=== PATIENT | male | born 1990 | race Hispanic/Latino ===

== ENCOUNTER 2017-08-21 12:43 | Emergency (ER) | payer SELFPAY ==
[2017-08-21] MEDS ORDERED: FENTANYL CITR 100 MCG/2 ML ONE (13:12)
[2017-08-21 13:44] LABS: Bicarbonate 26 mEq/L (21-31); Glucose Level 99 mg/dL (65-120); Potassium 3.4 mEq/L (3.6-5.0); Sodium Level 136 mEq/L (135-145)
[2017-08-21 13:48] LABS: Absolute Lymphocytes (CBC) 1.4 K/uL (0.7-4.9); Absolute Monocytes 0.6 K/uL (0.1-1.3); Absolute Neutrophil 3.4 K/uL (1.8-8.0); BUN Blood Urea Nitrogen 13 mg/dL (6-20); Basophils % 0.6 % (0-1.3); Creatine Phosphokinase 70 IU/L (22-269); Eosinophils % 2.1 % (0-4.4); Hematocrit 43.1 % (39.6-49.0); Lymphocytes % 25.3 % (15.3-44.8); MCH 30.1 pg (27.0-35.0); MCV 90.3 fL (80-100); MPV 10.5 fL (7.6-11.3); Monocytes % 11.7 % (3.3-12.3); RBC Red Blood Cell Count 4.78 M/uL (4.33-5.43)
[2017-08-21 13:55] LABS: CKMB Creatine Kinase MB 0.8 ng/ml (0.3-4.0)
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
== END 2017-08-21 15:09 | disposition home or self-care (01) ==
LOC: ER 12:43
DX: S20.212A Contusion of left front wall of thorax, initial encounter (principal); V59.49XA Driver of pick-up truck or van injured in collision with other motor vehicles in traffic accident, initial encounter
CPT/HCPCS: 36415; 70450; 71260; 72125; 74177; 80048; 82550; 82553; 84484; 85025; 86850; 86900; 86901; 96374; 99285; J3010; Q9967

== ENCOUNTER 2017-08-27 13:54 | Emergency (ER) | payer SELFPAY ==
[2017-08-27] MEDS ORDERED: CODEINE 30MG/APAP 300MG TAB ONE (19:53)
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
== END 2017-08-27 20:14 | disposition home or self-care (01) ==
LOC: ER 13:54
DX: M62.830 Muscle spasm of back (principal)
CPT/HCPCS: 99283

== ENCOUNTER 2022-02-18 02:08 | Emergency (ER) | payer SELFPAY ==
[2022-02-18] MEDS ORDERED: METHYLPREDNISOLONE 125 MG INJ ONE (02:57)
[2022-02-18] MEDS ORDERED: IPRATROPIUM BROM 0.5MG/2.5ML ONE (02:58)
[2022-02-18] MEDS ORDERED: ALBUTEROL 2.5 MG/3 ML NEB SOL ONE (02:58)
[2022-02-18] MEDS ORDERED: KETOROLAC 30 MG/ML INJ ONE (02:58)
[2022-02-18 04:10] LABS: SARS-COV-2 RT PCR NEGATIVE (NEGATIVE)
--- NOTE | 2022-02-18 04:21 | ER ---
Nurse's Notes [facility] Name: Chandler Eng Age: 32 yrs Sex: Male : 1990 Arrival Date: 02/18/2022 Time: 02:09 Bed 3 Private MD: Diagnosis: Influenza due to identified novel influenza A virus Presentation: 02/18 02:21 Chief complaint: Patient states: Gifty had a sore throat since and i have a kd3 history of asthma. I woke up today and it is very hard to breath. it hurts a lot to breath and swallow. Coronavirus screen: Vaccine status: Patient reports being unvaccinated. Ebola Screen: No symptoms or risks identified at this time. Initial Sepsis Screen: Does the patient meet any 2 criteria? No. Patient's initial sepsis screen is negative. Does the patient have a suspected source of infection? No. Patient's initial sepsis screen is negative. Risk Assessment: Do you want to hurt yourself or someone else? Patient reports no desire to harm self or others. Onset of symptoms was February 18, 2022. 02:21 Method Of Arrival: Wheelchair kd3 02:21 Acuity: KAYLA 3 kd3 Triage Assessment: 02:23 General: Appears uncomfortable, Behavior is cooperative, anxious. Pain: Complains of kd3 pain in neck. Neuro: Level of Consciousness is awake, alert, obeys commands, Oriented to person, place, time, situation. Cardiovascular: Patient's skin is warm and dry. Respiratory: Reports shortness of breath Onset: The symptoms/episode began/occurred today, the patient has moderate shortness of breath. Historical: - PMHx: 02:23 2nd degree heart block; Asthma; irregular heart beat; kd3 - Immunization history:: Adult Immunizations up to date. - Social history:: Smoking status: unknown. - Family history:: not pertinent. Screenin:24 Abuse screen: Denies threats or abuse. Denies injuries from another. Nutritional kd3 screening: No deficits noted. Tuberculosis screening: No symptoms or risk factors identified. Fall Risk None identified. Assessment: 02:24 Cardiovascular:. Respiratory: Airway is patent Respiratory effort is shallow, Breath kd3 sounds with wheezes bilaterally. 02:30 General: Appears comfortable, well groomed, well developed, Behavior is cooperative, pf1 appropriate for age, anxious. 02:30 Pain: Complains of pain in chest Also complains of Patient C/O sore throat with pf1 bilateral chest wall burning sensation. Neuro: No deficits noted. Cardiovascular: Chest pain quality is burning. Respiratory: Airway is patent Respiratory effort is even, unlabored, Breath sounds with wheezes bilaterally. Onset: The symptoms/episode began/occurred today. 03:05 Cardiovascular: Rhythm is sinus rhythm. pf1 Vital Signs: 02:21 BP 143 / 94; Pulse 107; Resp 24; Temp 97.9; Pulse Ox 97% on R/A; Weight 71.67 kg; kd3 Height 5 ft. 11 in. (180.34 cm); Pain 6/10; 03:21 BP 143 / 96; Pulse 82; Resp 20; Pulse Ox 100% ; pf1 04:28 BP 146 / 86; Pulse 100; Resp 20; Temp 99.6; Pulse Ox 100% ; Pain 8/10; pf1 02:21 Body Mass Index 22.04 (71.67 kg, 180.34 cm) kd3 ED Course: 02:09 Patient arrived in ED. ja2 02:15 Oren Landry MD is Attending Physician. rt 02:23 Triage completed. kd3 02:23 Arm band placed on right wrist. kd3 02:24 Patient has correct armband on for positive identification. kd3 02:30 Inserted saline lock: 20 gauge in left antecubital area, using aseptic technique. pf1 02:30 No provider procedures requiring assistance completed. pf1 02:55 Lucila rodriguez, CHITO is Primary Nurse. pf1 04:31 IV discontinued, intact, bleeding controlled, No redness/swelling at site. Pressure pf1 dressing applied. Administered Medications: 03:05 Drug: Ketorolac 30 mg Route: IVP; Site: left antecubital; kl 04:15 Follow up: Response: No adverse reaction; Marked relief of symptoms kl 04:31 Follow up: Response: No adverse reaction; Pain is decreased pf1 03:09 Drug: DuoNeb (albuterol 2.5 mg, ipratropium 0.5 mg) (3:1) (2.5 mg - 0.5 mg) 3 ml Route: kl Nebulizer; 04:15 Follow up: Response: No adverse reaction; Marked relief of symptoms kl 04:28 Follow up: BP 146 / 86; Pulse 100 bpm; Resp 20 bpm; Temp 99.6; Pulse Ox 100% ; Pain pf1 8 Adult 04:30 Follow up: Response: No adverse reaction; Wheezing diminished pf1 03:10 Drug: SOLU-Medrol (methylPrednisoLONE) 125 mg Route: IVP; Site: left antecubital; kl 04:31 Follow up: Response: No adverse reaction; Marked relief of symptoms pf1 Medication: 02:30 VIS not applicable for this client. pf1 Outcome: 04:21 Discharge ordered by MD. rt 04:42 Discharged to home ambulatory. pf1 04:42 Condition: improved 04:42 Discharge instructions given to patient, Instructed on discharge instructions, follow up and referral plans. Demonstrated understanding of instructions, follow-up care, medications, Prescriptions given X 1. 04:45 Patient left the ED. pf1 Signatures: Vivienne Oden RN RN Shivani You Kyli, RN RN kd3 Oren Landry MD MD rt finley, Pamala, RN RN pf1 Corrections: (The following items were deleted from the chart) 03:21 03:21 Inserted saline lock: 20 gauge in left antecubital area, using aseptic technique. pf1 pf1
--- NOTE | 2022-02-18 04:21 | EDPHYS ---
Physician Documentation [facility] Name: Chandler Eng Age: 32 yrs Sex: Male : 1990 Arrival Date: 02/18/2022 Time: 02:09 Bed 3 Private MD: ED Physician Oren Landry HPI: 02/18 03:43 This 32 yrs old Male presents to ER via Wheelchair with complaints of rt Breathing Difficulty. 03:43 The patient has shortness of breath at rest. Onset: The symptoms/episode began/occurred rt 3 day(s) ago. Duration: The symptoms are continuous. The patient's shortness of breath has no apparent modifying factors. Associated signs and symptoms: Pertinent positives: chest pain, non-productive cough. Severity of symptoms: At their worst the symptoms were moderate in the emergency department the symptoms. Patient with history of asthma presents to the ED with cough, pleuritic chest pain. He states that he hurts when he takes a deep breath or with coughing. The symptoms have worsened today. Patient did not take any bronchodilators. He denies other acute complaints at this time, symptoms are moderate severity, no other aggravating or alleviating factors.. Historical: - PMHx: 02:23 2nd degree heart block; Asthma; irregular heart beat; kd3 - Immunization history:: Adult Immunizations up to date. - Social history:: Smoking status: unknown. - Family history:: not pertinent. ROS: 03:43 Constitutional: Negative for fever, chills, and weight loss, Eyes: Negative for injury, rt pain, redness, and discharge, ENT: Negative for injury, pain, and discharge, Neck: Negative for injury, pain, and swelling, Abdomen/GI: Negative for abdominal pain, nausea, vomiting, diarrhea, and constipation, MS/Extremity: Negative for injury and deformity, Skin: Negative for injury, rash, and discoloration, Neuro: Negative for headache, weakness, numbness, tingling, and seizure, Psych: Negative for depression, anxiety, suicide ideation, homicidal ideation, and hallucinations. 03:43 Cardiovascular: Positive for chest pain, Negative for edema. 03:43 Respiratory: Positive for cough, shortness of breath. Exam: 03:43 Constitutional: This is a well developed, well nourished patient who is awake, alert, rt and in no acute distress. Head/Face: Normocephalic, atraumatic. Eyes: Pupils equal round and reactive to light, extra-ocular motions intact. Lids and lashes normal. Conjunctiva and sclera are non-icteric and not injected. Cornea within normal limits. Periorbital areas with no swelling, redness, or edema. ENT: Nares patent. No nasal discharge, no septal abnormalities noted. Tympanic membranes are normal and external auditory canals are clear. Oropharynx with no redness, swelling, or masses, exudates, or evidence of obstruction, uvula midline. Mucous membranes moist. Neck: Trachea midline, no thyromegaly or masses palpated, and no cervical lymphadenopathy. Supple, full range of motion without nuchal rigidity, or vertebral point tenderness. No Meningismus. Chest/axilla: Normal chest wall appearance and motion. Nontender with no deformity. No lesions are appreciated. Cardiovascular: Regular rate and rhythm with a normal S1 and S2. No gallops, murmurs, or rubs. Normal PMI, no JVD. No pulse deficits. Abdomen/GI: Soft, non-tender, with normal bowel sounds. No distension or tympany. No guarding or rebound. No evidence of tenderness throughout. Skin: Warm, dry with normal turgor. Normal color with no rashes, no lesions, and no evidence of cellulitis. MS/ Extremity: Pulses equal, no cyanosis. Neurovascular intact. Full, normal range of motion. Neuro: Awake and alert, GCS 15, oriented to person, place, time, and situation. Cranial nerves II-XII grossly intact. Motor strength 5/5 in all extremities. Sensory grossly intact. Cerebellar exam normal. Normal gait. Psych: Awake, alert, with orientation to person, place and time. Behavior, mood, and affect are within normal limits. 03:43 ECG was reviewed by the Attending Physician. 03:43 Respiratory: Worse breath sounds, slightly decreased, mild wheezing noted. No respiratory distress.. Vital Signs: 02:21 BP 143 / 94; Pulse 107; Resp 24; Temp 97.9; Pulse Ox 97% on R/A; Weight 71.67 kg; kd3 Height 5 ft. 11 in. (180.34 cm); Pain 6/10; 03:21 BP 143 / 96; Pulse 82; Resp 20; Pulse Ox 100% ; pf1 04:28 BP 146 / 86; Pulse 100; Resp 20; Temp 99.6; Pulse Ox 100% ; Pain 8/10; pf1 02:21 Body Mass Index 22.04 (71.67 kg, 180.34 cm) kd3 MDM: 02:28 Patient medically screened. rt 04:31 Differential diagnosis: asthma, CHF exacerbation, pneumonia, Pneumothorax Pulmonary rt Embolism. Data reviewed: vital signs, nurses notes, EKG, radiologic studies. ED course: Patient with history of asthma presents to the ED with cough, congestion, reported difficulty breathing. The patient has significant symptomatic improvement with bronchodilators, Toradol in the ED. The patient is found to have influenza A. COVID is negative. He is not hypoxic, do not believe that he requires further work-up for pulmonary embolism. Chest x-ray shows no pneumonia, pneumothorax, CHF. Is stable for outpatient care with bronchodilators, return precautions were discussed.. 02/18 04:14 Order name: COVID-19/FLU A+B; Complete Time: 04:16 EDMS 02/18 02:38 Order name: Chest Single View XRAY rt 02/18 02:38 Order name: EKG; Complete Time: 04:53 rt 02/18 02:38 Order name: EKG - Nurse/Tech; Complete Time: 03:22 rt EC:43 Rate is 92 beats/min. Rhythm is regular, Normal Sinus Rhythm. Right axis deviation rt noted. GA interval is normal. QRS interval is normal. QT interval is normal. No Q waves. T waves are Normal. No ST changes noted. Clinical impression: Normal ECG. Interpreted by me. Administered Medications: 03:05 Drug: Ketorolac 30 mg Route: IVP; Site: left antecubital; 04:15 Follow up: Response: No adverse reaction; Marked relief of symptoms kl 04:31 Follow up: Response: No adverse reaction; Pain is decreased pf1 03:09 Drug: DuoNeb (albuterol 2.5 mg, ipratropium 0.5 mg) (3:1) (2.5 mg - 0.5 mg) 3 ml Route: kl Nebulizer; 04:15 Follow up: Response: No adverse reaction; Marked relief of symptoms kl 04:28 Follow up: BP 146 / 86; Pulse 100 bpm; Resp 20 bpm; Temp 99.6; Pulse Ox 100% ; Pain pf1 8/10 Adult 04:30 Follow up: Response: No adverse reaction; Wheezing diminished pf1 03:10 Drug: SOLU-Medrol (methylPrednisoLONE) 125 mg Route: IVP; Site: left antecubital; kl 04:31 Follow up: Response: No adverse reaction; Marked relief of symptoms pf1 Disposition Summary: 02/18/22 04:21 Discharge Ordered Location: Home rt Problem: new rt Condition: Stable rt Diagnosis - Influenza due to identified novel influenza A virus rt Followup: rt - With: Private Physician - When: 2 - 3 days - Reason: Discharge Instructions: - Discharge Summary Sheet rt - Influenza, Adult, [id number] rt Forms: - Medication Reconciliation Form rt - Thank You Letter rt - Antibiotic Education rt - Prescription Opioid Use rt Prescriptions: - ALBUTEROL HFA. - inhale 3 puff by INHALATION route every 4 hours; 1 Inhaler; Refills: 0, Product rt Selection Permitted Signatures: Dispatcher [employer] Vivienne Zeng RN RN kl Doucette, Kyli, RN RN kd3 Oren Landry MD MD rt Lucila rodriguez RN pf1
[2022-02-18 05:01] VITALS: O2SAT 100
[2022-02-18 05:11] VITALS: BP 146/86; TEMP 99.6
--- NOTE | 2022-02-18 12:36 | RAD REPORT ---
EXAM DESCRIPTION: XR Chest 1 View AP CLINICAL HISTORY: Dyspnea COMPARISON: None. TECHNIQUE: Chest 1 View AP FINDINGS: Trachea midline. Heart size and pulmonary vessels within normal limits. Lungs clear without evidence of consolidation, mass, or significant pulmonary edema. No significant pleural effusion or pneumothorax. Bones unremarkable. IMPRESSION: Normal chest radiograph. Electronically signed by: David Medina MD 02/18/2022 3:28 AM PROP WORKER Due to temporary technical issues with the PACS/Fluency reporting system, reports are being signed by the in house radiologists without review as a courtesy to insure prompt reporting. The interpreting radiologist is fully responsible for the content of the report.
--- NOTE | 2022-02-19 19:04 | EKG ---
Test Date: 2022-02-18 Test Time: 03:05:50 [employer] Plate [employer] Press Operator: VIVI MEASUREMENT RESULTS: Intervals: Rate: 92 CO: 152 QRSD: 94 QT: 338 QTc: 417 [place]: P: 43 CO: 152 QRS: 105 T: 60 INTERPRETIVE STATEMENTS: Normal sinus rhythm Rightward axis Borderline ECG No previous ECG available for comparison Electronically Signed On 02-19-22 19:00:45 DELIVERY REP by Adrian Ayala
== END 2022-02-18 04:45 | disposition home or self-care (01) ==
LOC: ER 02:08
DX: J10.1 Influenza due to other identified influenza virus with other respiratory manifestations (principal); Z20.822 Contact with and (suspected) exposure to COVID-19
CPT/HCPCS: 0240U; 71045; 93005; 94640; 96374; 96375; 99284; J2930; J7613; J7644